=== PATIENT | male | born 1965 | race Caucasian/White ===

== ENCOUNTER 2024-09-24 15:09 | Emergency (ER) | payer BC ==
--- OUTSIDE RECORDS SUMMARY | 2024-09-24 15:13 | XMS REPORT | Clinical Summary ---
Author Name Unknown Organization [facility] [place] Address [address] [place] [address] Care Team Providers Care Tree Doctor Name Role Phone Angie Munoz MD Unavailable [phone] Finesse Andrade MD Unavailable [phone] Radha Xenia EULALIA Unavailable [phone] Grant Shah MD Primary Care Provider Larisa Chan RN Unavailable Allergies No known active allergies Medications traZODone (DESYREL) 100 mg tablet Take 1 tablet (100 mg) by mouth at bedtime. 5 Active ALPRAZolam (XANAX) 0.5 mg tablet Take 1 tablet (0.5 mg) by mouth daily as needed. 5 Active FLUoxetine (PROzac) 40 mg capsule Take 1 capsule (40 mg) by mouth daily. 5 Active peg 3350-electrolyt es (Golytely) 236-22.74-6.74 g solutionIndicat ions:Colonoscop y planned Mix as directed and drink as directed. 4000 mL 5 09/24/19 25 Discontinu ed(Stop Taking at Discharge) peg 3350-electrolyt es (Golytely) 236-22.74-6.74 g solutionIndicat ions:Colonoscop y planned Mix as directed and drink as directed. 4000 mL 09/24/19 Discontinu ed(Stop Taking at Discharge) Active Problems Problem Noted Date Diagnosed Date Thyroid nodule 09/11/2024 Carcinoma, NOS of descending colon 09/03/2024 Encounters Date Type Department Care Team Description 09/24/2024 Telephone Colorectal Center - Medical Oncology [address] [place] [address] Main [facility], 7th [place] [address] Larisa Chan, RN Nurse Navigation 09/24/2024 Telephone Gastrointestinal Center [address] [place] [address] Main [facility], 7th [place] [address] Jasmine Tillman RN 09/23/2024 12:24 PM CDT Anesthesia Event Endoscopy Center [address] [place] [address] Main [facility], 5th [place] [address] Kirill Ta MD 09/23/2024 12:00 PM CDT - 09/23/2024 1:00 PM CDT Surgery Endoscopy Center [address] [place] [address], 5th [place] [address] Mina Leigh MD DIAGNOSTIC FLEXIBLE COLONOSCOPY PROXIMAL TO SPLENIC FLEXURE 09/23/2024 10:46 AM CDT - 09/23/2024 2:45 PM CDT Hospital Encounter Endoscopy Center [address] [place] [address], 5th [place] [address] Mina Leigh MD Carcinoma, NOS of descending colon Discharge Disposition: Home 09/23/2024 Travel 09/22/2024 4:30 PM CDT POEM Appointments [facility] [address] [place] [address], 6th [place] [address] Grant Shah MD 09/19/2024 11:59 PM CDT Anesthesia Event [facility] [address] [place] [address] Main [facility], [facility] [place] [address] Nicolas Steen Jr., RN 09/18/2024 Orders Only Colorectal Center - Colon and Rectal Surgery [address] [place] [address], [facility] [place] [address] Grant Shah MD 09/18/2024 Telephone Colorectal Center - Medical Oncology [address] [place] [address], [address] [place] [address] [place] [address] Larisa Chan, RN Nurse Navigation 09/15/2024 Refill Endoscopy Center [address] [place] [address], 5th [place] [address] Heather Reno RN Colonoscopy planned (Primary Dx) 09/15/2024 Orders Only Gastrointestinal Center - Gastroenterology, Hepatology & Nutrition [address] [place] [address], [address] [place] [address] [place] [address] Roberto Mathur PA-C Colonoscopy planned (Primary Dx) 09/15/2024 Prep for Surgery Gastrointestinal [facility] - Gastroenterology, Hepatology & Nutrition [address] [place] [address], [address] [place] [address] Roberto Mathur PA-C Carcinoma, NOS of descending colon (Primary Dx) 09/13/2024 11:32 AM CDT - 09/13/2024 11:59 PM CDT Hospital Encounter Diagnostic [facility] [address] [place] [address] Virgie Little PA Carcinoma, NOS of descending colon Discharge Disposition: Home 09/11/2024 Orders Only Colorectal Center - Colon and Rectal Surgery [address] [place] [address], [address] [place] [address] Virgie Little PA Carcinoma, NOS of descending colon (Primary Dx); Thyroid nodule 09/05/2024 2:30 PM CDT Ancillary Procedure MD Vivas [place] [address] [address] Amber Horne PA-C Carcinoma, NOS of descending colon 09/04/2024 2:00 PM CDT Nutrition Clinical Nutrition For your Nutrition appointment location directions please call: Grant Shah MD Brown, Melanie P, VERONICA 09/04/2024 Telephone [facility] [place] - Medical Oncology [address] [place] [address], [facility] [place] [address] Larisa Chan, EULALIA New Patient ; Nurse Navigation 09/04/2024 Telephone [facility] [place] - Medical Oncology [address] [place] [address], [facility] [place] [address] Xenia Garcia, RN Nurse Navigation 09/03/2024 2:00 PM CDT Procedure visit [facility] - Colon and Rectal Surgery [address] [place] [address], [address] [place] [address] [place] [address] Grant Shah MD Carcinoma, NOS of descending colon 09/03/2024 1:00 PM CDT Office Visit [facility] - Colon and Rectal Surgery [address] [place] [address], [address] [place] [address] [place] [address] Grant Shah MD Carcinoma, NOS of descending colon (Primary Dx) 09/03/2024 10:15 AM CDT Ancillary Procedure Neuro-Interventiona l Ultrasound [address] [facility], 6th [place] [address] Kameron Hughes PA Carcinoma, NOS of descending colon 09/02/2024 7:55 AM CDT Ancillary Procedure [facility] [address] [facility], [place] [address] Kameron Hughes PA Carcinoma, NOS of descending colon 09/02/2024 Travel 09/01/2024 1:30 PM CDT NPR MDA PATIENT ACCESS Grant Shah MD 08/29/2024 Telephone Colorectal Center - Medical Oncology [address] [place] [address], [address] [place] [address] [place] [address] Xenia Garcia, RN Nurse Navigation 08/29/2024 Telephone [facility] [place] - Medical Oncology [address] [place] [address], [facility] [place] [address] Hurlbut, Xenia, RN Nurse Navigation 08/28/2024 Telephone [facility]orectal [place] - Medical Oncology [address] [facility] Main Bldg, 7th [place] [address] Xenia Garcia RN Nurse Murray 08/27/2024 Orders Only Colorectal Center - Colon and Rectal Surgery [address] [facility] Main Bldg, 7th [place] [address] Kameron Hughes PA Carcinoma, NOS of descending colon (Primary Dx) 08/25/2024 Lab Requisition [facility] George Collins MD Gilbert-Lewis, Sara Sanchez MD 08/21/2024 8:00 PM PATTERN MOLDER Ancillary Procedure [facility] [address] [place] [id number] Grant Shah MD Cancer 08/19/2024 Telephone [facility] - Medical Oncology [facility] [facility] Main dg, 7th [place] [address] Xenia Garcia RN 08/19/2024 Orders Only Radiation Treatment Center [address] [facility] Main dg, 1st [place] [address] Lilian Teixeira APRN 08/15/2024 Telephone [facility] - Medical Oncology [facility] 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 Malignant neoplasm of colon Disorder of thyroid gland Family History Medical History Relation Name Comments Lung cancer Father Nadiya father Breast cancer Mother Nadiya mother Relation Name Status Comments Father Nadiya father Mother Nadiya mother Social History Tobacco Use Types Packs/Day Years Used Date Smoking Tobacco: Former Cigarettes 1 5 Tobacco Cessation:Counseling Given: Not Answered Alcohol Use Standard Drinks/Week Comments Not Currently 0 (1 standard drink = 0.6 oz pur e alcohol) Sex and Gender Information Value Date Recorded Sex Assigned at Not on file Legal Sex Male 2:04 PM PATTERN MOLDER Gender Identity Not on file Sexual Orientation Not on file Obstetrics History Last Filed Vital Signs Vital Sign Reading Time Taken Comments Blood Pressure 110/79 09/23/2024 1:55 PM CDT Pulse 53 09/23/2024 1:55 PM CDT Temperature 36.4 C (97.5 F) 09/23/2024 1:45 PM CD T Respiratory Rate 17 09/23/2024 1:55 PM CDT Oxygen Saturation 98% 09/23/2024 1:55 PM CDT Inhaled Oxygen Concentration - - Weight 92.9 kg (204 lb 12.9 oz) 025 11:16 AM CDT Height 190.5 cm (6' 3") 09/23/2024 11:1 6 AM CDT Body Mass Index 25.6 09/23/2024 11:16 AM CDT Plan of Treatment Upcoming Encounters Date Type Department Care Team (Late st Contact Info) Description 10/17/2024 1:15 PM CDT Consult Endocrine Center [address] [place] [address], 6th [place] [address] Han Santiago MD [facility] [place], [place] [id number] [email or web address] Maintenance Due Date Last Done Comments Pneumococcal Vaccine: 50+ Years (1 of 1 - PCV) 016 COVID-19 Vaccine ( - season) 2024 Influenza Vaccine (#1) 2024 Medical Devices Implanted Type Area Film Examiner Device Identifier Shelf Expiration Date Model / Serial / Lot Screw Screw Right: Shoulder Procedures Procedure Name Priority Date/Time Associated Diagnosis Comments PATHOLOGY BIOPSY INTERPRETATION Routine 09/23/2024 12:51 PM CDT Carcinoma, NOS of descending colon HIV-1/-2 AG AND AB SCREEN, P Routine 09/13/2024 11:40 AM CDT Carcinoma, NOS of descending colon PETCT F18 FDG (FLUORODEOXYGLUCOSE) WITH CONTRAST Routine 09/05/2024 4:29 PM CDT Carcinoma, NOS of descending colon US FINE NEEDLE ASPIRATION Routine 09/03/2024 12:44 PM CDT Carcinoma, NOS of descending colon US HEAD NECK SOFT TISSUE Routine 025 12:44 PM CDT Carcinoma, NOS of descending colon CYTOLOGY IMAGE-GUIDED FNA INTERPRETATION Routine 09/03/2024 10:57 AM CDT Carcinoma, NOS of descending colon AR SIGMOIDOSCOPY FLX DX W/COLLJ SPEC BR/WA IF PFRMD Routine 09/03/2024 Carcinoma, NOS of descending colon CT CHEST ABDOMEN PELVIS W CONTRAST Routine 09/02/2024 9:16 AM CDT Carcinoma, NOS of descending colon CARBOHYDRATE ANTIGEN 19-9 Add-On 09/02/2024 7:19 AM CDT Carcinoma, NOS of descending colon MDA CP HEMOGRAM Routine 09/02/2024 7:19 AM CDT Carcinoma, NOS of descending colon PROTHROMBIN TIME Routine 09/02/2024 7:19 AM CDT Carcinoma, NOS of descending colon HEMOGLOBIN A1C Routine 09/02/2024 7:19 AM CDT Carcinoma, NOS of descending colon COMPREHENSIVE METABOLIC PANEL Routine 09/02/2024 7:19 AM CDT Carcinoma, NOS of descending colon CARCINOEMBRYONIC ANTIGEN Routine 025 7:19 AM CDT Carcinoma, NOS of descending colon COMPLETE BLOOD COUNT W/ INDICES Routine 09/02/2024 7:19 AM CDT Carcinoma, NOS of descending colon APTT Routine 09/02/2024 7:19 AM CDT Carcinoma, NOS of descending colon OSI CT CHEST Routine 07/29/2024 12:07 PM PATTERN MOLDER Cancer PATHOLOGY OUTSIDE INTERPRETATION Routine 07/25/2024 after 09/25/2023 Results * Pathology Biopsy Interpretation (09/23/2024 12:51 PM CDT) Submitted Clinical History Carcinoma, NOS of descending colon [C18.6] 09/24/2024 11:28 AM CDT [facility] Diagnosis A: Colon, splenic flexure colon polyps x 2, biopsy: Tubular adenomas. B: Colon, descending colon polyp, biopsy: Tubular adenoma. 09/24/2024 11:28 AM CDT [facility] Gross Description A: Colon, splenic flexure colon polyps x 2: 2 polypoid bush pieces of tissue, 0.7 cm and 0.8 cm. Each piece is sectioned, entirely submitted in A1-A2. ET B: Colon, descending colon polyp: 1 polypoid bush piece of tissue, 1.5 cm, serially sectioned, entirely submitted in B1. ET 09/24/2024 11:28 AM CDT [facility] [employer] [facility] Biomarker Block(s) NA 09/24/2024 11:28 AM CDT [facility] Disclaimer "Some tests reported here may have been developed and performance characteristics determined by [facility]. These tests have not been specifically cleared or approved by the U.S. Food and Drug Administration. If applicable, controls were reviewed and showed appropriate reactivity." 09/24/2024 11:28 AM CDT [facility] Tissue (Colon) 09/23/2024 12 :51 PM CDT 09/23/2024 3:25 PM CDT Tissue specimen (specimen) (Colon) 09/23/2024 12:58 PM CDT 09/23/2024 3:25 PM CDT us Mina Leigh MD LAB PATHOLOGY ORDERABLES Final R esult [facility] [place] [address], [place] * HIV-1/-2 Ag and Ab Screen, P (09/13/2024 11:40 AM CDT) HIV-1/-2 Ag and Ab Screen, P Negative Negative 09/15/2024 10:15 AM CDT [facility] Comment: Negative result does not rule out HIV infection. If exposure to HIV infection occurred <14 days ago, contact the laboratory to request addition of HIV-1/HIV-2 RNA detection, Plasma (HIP12). Test Performed by: [facility] [address] [place] [address] Poultry Dresser: Justino Barrera Ph.D.; CLIA# [id number] Blood Peripheral blood specimen / Unknown Venipuncture / Unknown 09/13/2024 11:40 AM CDT 09/13/2024 12:05 PM CDT us Virgie BOWMAN LAB BLOOD ORDERABLES Final Resul t [facility] * PETCT F18 FDG (Fluorodeoxyglucose) with contrast (09/05/2024 4:29 PM CDT) Anatomical Region Laterality Modality Whole Body Positron Emissio n Tomography (PET) 09/08/2024 3:21 PM CDT Impressions 09/08/2024 5:10 PM CDT Thin-walled cavities noted in the right lower lobe with low-grade metabolic activity. This may be postinflammatory nature and should be closely monitored in subsequent studies. Multiple calcified and metabolically avid mediastinal nodes are noted. This is associated with numerous calcified granulomas. These may be related to chronic granulomatous process. Metastases is thought to be unlikely. No definite evidence of metastases in the abdomen and pelvis. ACTIONABLE ITEMS/RECOMMENDATIONS*: None. *An Actionable Finding is a finding that may be unrelated to the original reason for imaging but potentially actionable, meaning further investigation may be necessary. The Actionable Findings Vigilance Unit (AFVU) assists medical providers with responding to additional radiologic findings that are unexpected and potentially actionable. Narrative 09/08/2024 5:10 PM CDT FULL RESULT: Examination: 18F-FDG-PET/CT with contrast, 09/05/2024 4:29 PM Clinical History: Carcinoma of the colon. Indication: Initial treatment strategy. Comparison: CT scan from 09/02/2024 Technique: F-18 fluorodeoxyglucose 11.1 mCi was administered intravenously via left antecubital vein. To allow for distribution and uptake of radiotracer, the patient was asked to rest quietly for approximately 60-90 minutes. PET/CT imaging was performed from the vertex to thighs. CT scanning was done for attenuation correction, image registration, and diagnosis with scan parameters optimized to minimize radiation exposure to the patient. The CT portion of the examination was performed with intravenous contrast. SUV measurements are reported as maximum SUV based on body weight unless otherwise specified. Findings: Head and Neck: Symmetrical intracranial radiotracer activity is noted. No evidence of intracranial mass lesions are seen. Physiological distribution of tracer is noted in the lymphoid tissue surrounding the oropharynx. There is no evidence of FDG avid cervical adenopathy. The neck Chest: There are multiple enlarged, partially calcified mediastinal and hilar nodes which are not metabolically avid, for example, 3.2 x 2.4 cm right hilar node has a maximum SUV of 11.8, 1.6 x 2 cm subcarinal node on image 124 has a maximum SUV of 4.9, 1.5 x 2.2 cm superior mediastinal node on image 141 has a maximum SUV of 5.8. There are numerous scattered calcified granulomas. A thin-walled cavitary lesion measuring 1.3 x 1.1 cm in the right lower lobe is associated with low-grade metabolic activity, maximum SUV of 2.9. Abdomen and Pelvis: Long segment increased metabolic activity is noted in the sigmoid colon. No bowel mass lesions are seen. No obstruction. There is diffuse hepatic steatosis and mild hepatic enlargement. No evidence of hepatic metastases. Physiologic radiotracer activity in the liver, spleen. The spleen is mildly enlarged The adrenal glands, the kidneys, the pancreas are within normal limits. No evidence of mesenteric, retroperitoneal or pelvic adenopathy. Musculoskeletal: There are no FDG avid bony lesions seen. No FDG avid intramuscular or subcutaneous lesions are identified. Procedure Note Rohan Dias MD - 09/08/2024 FULL RESULT: Examination: 18F-FDG-PET/CT with contrast, 09/05/2024 4:29 PM Clinical History: Carcinoma of the colon. Indication: Initial treatment strategy. Comparison: CT scan from 09/02/2024 Technique: F-18 fluorodeoxyglucose 11.1 mCi was administered intravenously via leftantecubital vein. To allow for distribution and uptake of radiotracer, thepatient was asked to rest quietly for approximately 60-90 minutes. PET/CTimaging was performed from the vertex to thighs. CT scanning was done forattenuation correction, image registration, and diagnosis with scanparameters optimized to minimize radiation exposure to the patient. The CTportion of the examination was performed with intravenous contrast. SUVmeasurements are reported as maximum SUV based on body weight unlessotherwise specified. Findings: Head and Neck: Symmetrical intracranial radiotracer activity is noted. No evidence ofintracranial mass lesions are seen. Physiological distribution of traceris noted in the lymphoid tissue surrounding the oropharynx. There is noevidence of FDG avid cervical adenopathy. The neck Chest: There are multiple enlarged, partially calcified mediastinal and hilarnodes which are not metabolically avid, for example, 3.2 x 2.4 cm righthilar node has a maximum SUV of 11.8, 1.6 x 2 cm subcarinal node on [id number] has a maximum SUV of 4.9, 1.5 x 2.2 cm superior mediastinal node onimage 141 has a maximum SUV of 5.8. There are numerous scattered calcified granulomas. A thin-walled cavitarylesion measuring 1.3 x 1.1 cm in the right lower lobe is associated withlow-grade metabolic activity, maximum SUV of 2.9. Abdomen and Pelvis: Long segment increased metabolic activity is noted in the sigmoid colon.No bowel mass lesions are seen. No obstruction. There is diffuse hepaticsteatosis and mild hepatic enlargement. No evidence of hepatic metastases.Physiologic radiotracer activity in the liver, spleen. The spleen ismildly enlarged The adrenal glands, the kidneys, the pancreas are within normal limits. No evidence of mesenteric, retroperitoneal or pelvic adenopathy. Musculoskeletal: There are no FDG avid bony lesions seen. No FDG avid intramuscular orsubcutaneous lesions are identified. IMPRESSION: Thin-walled cavities noted in the right lower lobe with low-grademetabolic activity. This may be postinflammatory nature and should beclosely monitored in subsequent studies. Multiple calcified and metabolically avid mediastinal nodes are noted.This is associated with numerous calcified granulomas. These may berelated to chronic granulomatous process. Metastases is thought to beunlikely. No definite evidence of metastases in the abdomen and pelvis. ACTIONABLE ITEMS/RECOMMENDATIONS*: None. *An Actionable Finding is a finding that may be unrelated to the originalreason for imaging but potentially actionable, meaning furtherinvestigation may be necessary. The Actionable Findings Vigilance Unit(AFVU) assists medical providers with responding to additional radiologicfindings that are unexpected and potentially actionable. us Abmer Horne PA-C [facility] PETCT ORDERABLES Final Result * US Fine Needle Aspiration (09/03/2024 12:44 PM CDT) Anatomical Region Laterality Modality Ultrasound 09/03/2024 12:5 0 PM CDT Impressions 09/03/2024 12:52 PM CDT Status post FNA of the 3.5 cm left mid thyroid nodule with preliminary cytology interpreted as cellular atypica, full result to follow. ACTIONABLE ITEMS/RECOMMENDATIONS*: None. *An Actionable Finding is a finding that may be unrelated to the original reason for imaging but potentially actionable, meaning further investigation may be necessary. The Actionable Findings Vigilance Unit (AFVU) assists medical providers with responding to additional radiologic findings that are unexpected and potentially actionable. Narrative 09/03/2024 12:52 PM CDT FULL RESULT: Examination: US FINE NEEDLE ASPIRATION on 09/03/2024 12:44 PM. CLINICAL HISTORY: Carcinoma, NOS of descending colon INDICATION: Mass from other Imaging (CT, MRI, PET, etc.) COMPARISON: Ultrasound soft tissue neck 09/03/2024. TECHNIQUE: Grayscale and color Doppler ultrasound of the neck was performed. An ultrasound-guided FNA of 3.5 cm left thyroid nodule was performed. PROCEDURE: Site: Left thyroid nodule Provider performing procedure: Yann Lu Procedure investment sales assistant: None Procedure details: The procedure and associated risks, benefits, and alternatives were discussed with the patient, who agreed to proceed and signed an informed consent form. A safety timeout was done to verify the patient's identity, review any allergies, and confirm the side and site of the procedure. The skin site was prepped aseptically. Medication: local anesthesia with Lidocaine 1% FNA of the thyroid was performed using a 25-gauge needle Number passes made: 4 Estimated blood loss: Minimal Specimens removed: Yes Immediate Complications: None Post-procedure Diagnosis: Unchanged Disposition: The post-biopsy instructions were reviewed with the patient. The patient was discharged from Neurointerventional Ultrasound in good condition. Procedure Note Aaron Lu MD - 09/03/2024 FULL RESULT: Examination: US FINE NEEDLE ASPIRATION on 09/03/2024 12:44 PM. CLINICAL HISTORY: Carcinoma, NOS of descending colon INDICATION: Mass from other Imaging (CT, MRI, PET, etc.) COMPARISON: Ultrasound soft tissue neck 09/03/2024. TECHNIQUE: Grayscale and color Doppler ultrasound of the neck wasperformed. An ultrasound-guided FNA of 3.5 cm left thyroid nodule wasperformed. PROCEDURE: Site: Left thyroid nodule Provider performing procedure: Yann Lu Procedure investment sales assistant: None Procedure details: The procedure and associated risks, benefits, and alternatives werediscussed with the patient, who agreed to proceed and signed an informedconsent form. A safety timeout was done to verify the patient's identity, review anyallergies, and confirm the side and site of the procedure. The skin site was prepped aseptically. Medication: local anesthesia with Lidocaine 1% FNA of the thyroid was performed using a 25-gauge needle Number passes made: 4 Estimated blood loss: Minimal Specimens removed: Yes Immediate Complications: None Post-procedure Diagnosis: Unchanged Disposition: The post-biopsy instructions were reviewed with the patient.The patient was discharged from Neurointerventional Ultrasound in goodcondition. IMPRESSION: Status post FNA of the 3.5 cm left mid thyroid nodule with preliminarycytology interpreted as cellular atypica, full result to follow. ACTIONABLE ITEMS/RECOMMENDATIONS*: None. *An Actionable Finding is a finding that may be unrelated to the originalreason for imaging but potentially actionable, meaning furtherinvestigation may be necessary. The Actionable Findings Vigilance Unit(AFVU) assists medical providers with responding to additional radiologicfindings that are unexpected and potentially actionable. Kameron BOWMAN IMG US ORDERABLES Final Re sult * US HEAD NECK SOFT TISSUE (09/03/2024 12:44 PM CDT) Anatomical Region Laterality Modality Head, Neck Ultrasound 09/03/2024 10:5 0 AM CDT Impressions 09/03/2024 12:51 PM CDT Status post FNA of the 3.5 cm left mid thyroid nodule with preliminary cytology interpreted as cellular atypica, full result to follow. No suspicious right thyroid nodules. No adenopathy. ACTIONABLE ITEMS/RECOMMENDATIONS: None Narrative 09/03/2024 12:51 PM CDT FULL RESULT: Examination: US HEAD NECK SOFT TISSUE on 09/03/2024 10:19 AM. CLINICAL HISTORY: Thyroid nodule INDICATION: Other: Lt Thyroid nodule observed on OSI CT scan, h/o Colon cancer - SCC COMPARISON: None. TECHNIQUE: Ultrasound examination of the neck soft tissues was performed. FINDINGS: Right thyroid gland: The right thyroid measures approximately 4.5 x 1.5 x 1.5 cm in diameter. No suspicious nodules or calcifications are present. Left thyroid gland: The left thyroid gland measures approximately 5.3 x 2.9 x 2.4 cm in diameter. An isoechoic nodule in the midpole measures approximately 3.5 x 2.8 x 2.4 cm and demonstrates minimal vascularity without calcification (TR 3). Suprasternal and superior mediastinal: No adenopathy. Submental to cricoid: No adenopathy. Right lateral neck: No adenopathy. Left lateral neck: No adenopathy. Procedure Note Aaron Lu MD - 09/03/2024 FULL RESULT: Examination: US HEAD NECK SOFT TISSUE on 09/03/2024 10:19 AM. CLINICAL HISTORY: Thyroid nodule INDICATION: Other: Lt Thyroid nodule observed on OSI CT scan, h/o Colon cancer - SCC COMPARISON: None. TECHNIQUE: Ultrasound examination of the neck soft tissues wasperformed. FINDINGS: Right thyroid gland: The right thyroid measures approximately 4.5 x 1.5 x 1.5 cm in diameter. No suspicious nodules or calcifications are present. Left thyroid gland: The left thyroid gland measures approximately 5.3 x 2.9 x 2.4 cm indiameter. An isoechoic nodule in the midpole measures approximately 3.5 x 2.8 x 2.4cm and demonstrates minimal vascularity without calcification (TR 3). Suprasternal and superior mediastinal: No adenopathy. Submental to cricoid: No adenopathy. Right lateral neck: No adenopathy. Left lateral neck: No adenopathy. IMPRESSION: Status post FNA of the 3.5 cm left mid thyroid nodule with preliminarycytology interpreted as cellular atypica, full result to follow. No suspicious right thyroid nodules. No adenopathy. ACTIONABLE ITEMS/RECOMMENDATIONS: None us Kameron BOWMAN IMG US ORDERABLES Final Re sult * (ABNORMAL) Cytology Image-Guided FNA Interpretation (09/03/2024 10:57 AM CDT) Gross Description Specimens procured: 6 Diff Quik; 6 Pap Stain Slides 10 ml, slightly cloudy bloody fluid in RPMI 1 Cell Block Date/Time Placed in Formalin: 09/03/24 2:52 PM Size: 2.8 x 2.4 x 3.5 cm Immediate assessment for specimen adequacy was made x2 by Dr. Will 09/05/2024 12:04 PM CDT [facility] Immediate Assessment Adequate cellularity, further review needed 09/05/2024 12:04 PM CDT [facility] Major Classification Cellular atypia(A) 09/05/2024 12:04 PM CDT [facility] Diagnosis Thyroid, left lobe, fine needle aspiration: Atypia of undetermined significance (AUS-nuclear) [place] category III 09/05/2024 12:04 PM CDT [facility] Comment The aspirate demonstrates rare follicular cell groups with significant nuclear atypia including nuclear enlargement and irregularity, frequent nuclear grooves and suggestion of rare intranuclear inclusions. There is thick colloid in the background. The atypia seen raises some concern for papillary thyroid carcinoma, but the paucity of atypical cells precludes a definitive diagnosis. An attempt was made to perform immunoperoxidase staining for BRAF V600E on rare cells within the cell block but is non-contributory due to the paucity of diagnostic cells. The cell block preparation was contributory toward making the above diagnosis. 09/05/2024 12:04 PM CDT [facility] Retained/Biomark er Testing SR: 12 S, 1 CB. 1 IP 09/05/2024 12:04 PM CDT [facility] Informational Points Some tests reported here may have been developed and performance characteristics determined by [facility]. These tests have not been specifically cleared or approved by the U.S. Food and Drug Administration. 09/05/2024 12:04 PM CDT [facility] Fine Needle Asp (Thyroid, Left Lobe) 09/03/2024 10:57 AM CDT 09/03/2024 11:36 AM CDT us Kameron BOWMAN LAB CYTOLOGY ORDERABLES Fi nal Result [facility] [address] [address], * AR SIGMOIDOSCOPY FLX DX W/COLLJ SPEC BR/WA IF PFRMD (09/03/2024) Narrative [facility] - 09/03/2024 Grant Shah MD 09/03/2024 2:28 PM Flexible sigmoidoscopy - In Clinic Date/Time: 09/03/2024 2:25 PM Provider Information: Performed by: Grant Shah MD Authorized by: Kameron Hughes PA Corn Husk Baler present?: yes Corn Husk Baler: Amber Horne PA-C Patient Diagnosis: 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 Summary: Digital rectal exam - unremarkable, no evidence of perianal lesion Flexible sigmoidoscopy - incomplete due to poor prep. No abnormalities in sigmoid colon and rectum. Retroflexed in rectum, no evidence of perianal disease. 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 Summary: Digital rectal exam - unremarkable, no evidence of perianal lesion Flexible sigmoidoscopy - incomplete due to poor prep. No abnormalities insigmoid colon and rectum. Retroflexed in rectum, no evidence of perianaldisease. Kameron BOWMAN GI PROCEDURE ORDERABLES Ed ited Result - Final [facility] * CT Chest Abdomen Pelvis with Contrast (09/02/2024 9:16 AM CDT) Anatomical Region Laterality Modality Abdomen, Pelvis, Chest Computed Tomography 09/02/2024 9:18 AM CDT Impressions 09/02/2024 9:49 AM CDT No visualized tumor in the descending colon. No definite evidence of metastatic disease in the chest, abdomen, and pelvis. Nonspecific stable right anterior pericardiac borderline node. Stable cavitary right lower lobe 1.4 cm partially calcified lung nodule, which might be related to infection, inflammation, or less likely tumor. Sequela of extensive old granulomatous disease in the thorax. ACTIONABLE ITEMS/RECOMMENDATIONS*: None. *An Actionable Finding is a finding that may be unrelated to the original reason for imaging but potentially actionable, meaning further investigation may be necessary. The Actionable Findings Vigilance Unit (AFVU) assists medical providers with responding to additional radiologic findings that are unexpected and potentially actionable. Narrative 09/02/2024 9:49 AM CDT FULL RESULT: Examination: CT CHEST ABDOMEN PELVIS W CONTRAST on 09/02/2024 9:16 AM. Clinical History: Carcinoma, NOS of descending colon. Indication: Cancer surveillance. Comparison: 07/29/[address] chest. Technique: CT CHEST ABDOMEN PELVIS W CONTRAST. Findings: CHEST: Thyroid gland: Bilateral thyroid nodules. Lungs and Pleura: Right lower lobe posterior medial cavitary 1.4 cm nodule (series 4 image 110) is unchanged. Multiple bilateral calcified lung nodules. No pleural effusion. Cardiomediastinum: The heart is normal in size. No pericardial effusion. Mild coronary artery calcifications. Lymph nodes: Multiple calcified prominent mediastinal and perihilar nodes, consistent with sequela of granulomatous disease. ABDOMEN AND PELVIS: Hepatobiliary: No suspicious hepatic lesion. No biliary dilatation. No cholecystitis. Spleen: Moderately enlarged at 15.2 cm. Scattered calcified Pancreas: No mass or ductal dilatation. Adrenal Glands: No mass. Kidneys, Ureters, Bladder: No hydronephrosis. No suspicious renal lesion. No bladder mass. Gastrointestinal Tract: No bowel obstruction or wall thickening. Pelvic Organs: No pelvic mass. Peritoneum/Retroperitoneum: No ascites. Lymph Nodes: Stable right anterior pericardiac 0.9 cm node (series 3 image 170). MUSCULOSKELETAL: No suspicious skeletal lesion. Mild degenerative changes. Vasculature: Moderate degree of atheromatous vascular calcifications. Procedure Note Teri Talamantes MD - 09/02/2024 FULL RESULT: Examination: CT CHEST ABDOMEN PELVIS W CONTRAST on 09/02/2024 9:16 AM. Clinical History: Carcinoma, NOS of descending colon. Indication: Cancer surveillance. Comparison: 07/29/[address] chest. Technique: CT CHEST ABDOMEN PELVIS W CONTRAST. Findings: CHEST: Thyroid gland: Bilateral thyroid nodules. Lungs and Pleura: Right lower lobe posterior medial cavitary 1.4 cm nodule(series 4 image 110) is unchanged. Multiple bilateral calcified lungnodules. No pleural effusion. Cardiomediastinum: The heart is normal in size. No pericardial effusion.Mild coronary artery calcifications. Lymph nodes: Multiple calcified prominent mediastinal and perihilar nodes,consistent with sequela of granulomatous disease. ABDOMEN AND PELVIS: Hepatobiliary: No suspicious hepatic lesion. No biliary dilatation. Nocholecystitis. Spleen: Moderately enlarged at 15.2 cm. Scattered calcified Pancreas: No mass or ductal dilatation. Adrenal Glands: No mass. Kidneys, Ureters, Bladder: No hydronephrosis. No suspicious renal lesion. No bladder mass. Gastrointestinal Tract: No bowel obstruction or wall thickening. Pelvic Organs: No pelvic mass. Peritoneum/Retroperitoneum: No ascites. Lymph Nodes: Stable right anterior pericardiac 0.9 cm node (series 3 [id number]). MUSCULOSKELETAL: No suspicious skeletal lesion. Mild degenerative changes. Vasculature: Moderate degree of atheromatous vascular calcifications. IMPRESSION: No visualized tumor in the descending colon. No definite evidence of metastatic disease in the chest, abdomen, andpelvis. Nonspecific stable right anterior pericardiac borderline node. Stable cavitary right lower lobe 1.4 cm partially calcified lung nodule,which might be related to infection, inflammation, or less likely tumor.Sequela of extensive old granulomatous disease in the thorax. ACTIONABLE ITEMS/RECOMMENDATIONS*: None. *An Actionable Finding is a finding that may be unrelated to the originalreason for imaging but potentially actionable, meaning furtherinvestigation may be necessary. The Actionable Findings Vigilance Unit(AFVU) assists medical providers with responding to additional radiologicfindings that are unexpected and potentially actionable. Kameron BOWMAN IMG CT ORDERABLES Final Re sult * Hemogram (09/02/2024 7:19 AM CDT) White Blood Cell 6.6 4.1 - 10.5 K/uL 09/02/2024 7:27 AM [facility] Red Blood Cell 4.64 4.30 - 6.04 M/uL 09/02/2024 7:27 AM [facility] Hemoglobin 14.2 13.3 - 17.4 g/dL 09/02/2024 7:27 AM [facility] Hematocrit 43.6 39.5 - 51.8 % 09/02/2024 7:27 AM [facility] Mean Cell Volume 94 82 - 99 fL 09/03/19 25 7:27 AM [facility] Mean Cell Hemoglobin 30.6 26.6 - 33.2 pg 09/02/2024 7:27 AM [facility] Mean Cell Hemoglobin Concentration 32.6 31.1 - 35.2 g/dL 09/02/2024 7:27 AM CDT [facility] RDW-SD 43.7 37.5 - 49.7 fL 09/02/2024 7:27 AM CDT [facility] Red Cell Diameter Width 12.5 11.6 - 15.5 % 09/02/2024 7:27 AM CDT [facility] Platelet 179 160 - 397 K/uL 09/02/2024 7:27 AM CDT [facility] Mean Platelet Volume 10.0 9.1 - 12.6 fL 09/02/2024 7:27 AM CDT [facility] Blood Peripheral blood specimen / Unknown Venipuncture / Unknown 09/02/2024 7:19 AM CDT 09/02/2024 7:19 AM CDT us Kameron BOWMAN LAB BLOOD ORDERABLES Final Result [facility] [address] [address] [facility], Room #[id number] [place] [address] * (ABNORMAL) Comprehensive Metabolic Panel (09/02/2024 7:19 AM CDT) Bilirubin Total 0.4 0.0 - 1.2 mg/dL 09/02/2024 7:47 AM [facility] Comment:Indocyanine Green (I CG) may cause falsely elevated bilirubin results. Total and direct bilirubin must not be measured from samples containing indocyanine green. False elevation of total bilirubin can be seen in patients with IgG concentrations above 28 g/L. eGFR 86 >=60 mL/min/1.7 3 sq. m 09/02/2024 7:47 AM T [facility] Comment: The eGFRcr is calculated with the 2020 CKD-EPI creatinine equation using creatinine, patient's age, and sex for adults 18 years of age and older. Other factors, especially muscle mass, may affect accuracy and need to be considered. According to the Kidney Disease: Improving Global Outcomes (KDIGO) CKD Work Group 2012 Clinical Practice Guideline, chronic kidney disease (CKD) is defined as the abnormalities of kidney structure or function, present for more than 3 months, with implications for health. CKD should be classified by cause, GFR category, and albuminuria category. KDIGO guidelines provide the following GFR categories. Stage / Description / GFR mL/min/1.73 m2: G1* / Normal or high / >= 90 G2* / Mildly decreased / 60-89 G3a / Mildly to moderately decreased / 45-59 G3b / Moderately to severely decreased / 30-44 G4 / Severely decreased / 15-29 G5 / Kidney failure / <15 *In the absence of evidence of kidney damage, neither G1 nor G2 fulfill criteria for CKD. Tot Protein 7.3 6.4 - 8.3 gm/dL 09/02/2024 7:47 AM [facility] Calcium Level Total 9.6 8.2 - 10.2 mg/dL 09/02/2024 7:47 AM [facility] Alkaline Phosphatase 112 40 - 129 U/L 09/02/2024 7:47 AM [facility] Albumin Level 4.3 3.5 - 5.2 gm/dL 09/02/2024 7:47 AM [facility] AST 48(H) <=40 U/L 09/02/2024 7:47 AM [facility] ALT 45(H) <=41 U/L 09/02/2024 7:47 AM [facility] Sodium Level 137 136 - 145 mmol/L 09/02/2024 7:47 AM [facility] Potassium Level 4.2 3.4 - 4.5 mmol/L 09/02/2024 7:47 AM [facility] Chloride 102 98 - 107 mmol/L 09/02/2024 7:47 AM [facility] CO2 25 22 - 29 mmol/L 09/02/2024 7:47 AM [facility] Anion Gap 10 4 - 14 mmol/L 09/02/2024 7:47 AM [facility] Creatinine 1.01 0.67 - 1.17 mg/dL 09/02/2024 7:47 AM [facility] BUN 22 6 - 23 mg/dL 09/02/2024 7:47 AM [facility] Glucose Level 93 70 - 99 mg/dL 09/02/2024 7:47 AM [facility] Comment: Effective 01/19/16, the glucose reference intervals have been updated based on [place] Diabetes [employer] guidelines (Standards of Medical Care in Diabetes 2016. Diabetes Care 2016; 39: S13-S22). Fasting blood glucose: Normal: 70-99 mg/dL Impaired fasting glucose (increased risk for diabetes or pre-diabetes): 100-125 mg/dL Diabetes mellitus: >/=126 mg/dL Random blood glucose: Normal: 70-199 mg/dL Note: Random glucose >100 mg/dL is associated with increased risk for diabetes. Blood Peripheral blood specimen / Unknown Venipuncture / Unknown 09/02/2024 7:19 AM CDT 09/02/2024 7:19 AM CDT Kameron BOWMAN LAB BLOOD ORDERABLES Final Result [facility] [id number], Room #[id number] [place] [address] * aPTT (09/02/2024 7:19 AM CDT) Activated PTT 31.4 24.8 - 35.6 second(s) 09/02/2024 7:46 AM CDT [facility] Blood Peripheral blood specimen / Unknown Venipuncture / Unknown 09/02/2024 7:19 AM CDT 09/02/2024 7:19 AM CDT Kameron BOWMAN LAB BLOOD ORDERABLES Final Result [facility] [address], Room #[id number] [place] [address] * CA 19-9 (09/02/2024 7:19 AM CDT) CA 19-9 20.8 <=35.0 U/mL 09/03/2024 2:47 PM CDT [facility] Blood Peripheral blood specimen / Unknown Venipuncture / Unknown 09/02/2024 7:19 AM CDT 09/02/2024 7:19 AM CDT Narrative [facility] - 09/03/2024 2:47 PM CDT Results greater than 9500 U/mL may not be reliable due to matrix effect with extended dilution as it exceeds the peanut butter maker's recommended limit. Caution should be exercised when interpreting such values and done in conjunction with clinical context. This test is measured by electrochemiluminescence immunoassay on [employer] immunoassay analyzers. Results obtained in different methods are not interchangeable. Amber Horne PA-C LAB BLOOD ORDERABLES Final Result Performing Organization Address City/[facility]/ZIP Co de Phone Number [facility] [id number] [facility], Room #[id number] [place] [address] * Prothrombin Time with INR (09/02/2024 7:19 AM CDT) Prothrombin Time 13.5 12.2 - 14.4 second(s) 09/02/2024 7:46 AM CDT [facility] International Normalization Ratio 1.01 0.91 - 1.10 09/02/2024 7:46 AM CDT [facility] Blood Peripheral blood specimen / Unknown Venipuncture / Unknown 09/02/2024 7:19 AM CDT 09/02/2024 7:19 AM CDT Kameron BOWMAN LAB BLOOD ORDERABLES Final Result Performing Organization Address City/[facility]/ZIP Co de Phone Number [facility] [id number] [facility], Room #[id number] [place] [address] * Hemoglobin A1c (09/02/2024 7:19 AM CDT) Hemoglobin A1c 5.5 4.3 - 5.6 % 09/02/2024 7:49 AM CDT [facility] Blood Peripheral blood specimen / Unknown Venipuncture / Unknown 09/02/2024 7:19 AM CDT 09/02/2024 7:19 AM CDT Narrative [facility] - 09/02/2024 7:49 AM CDT HbA1c values >=6.5% are diagnostic of diabetes mellitus. Diagnosis should be confirmed by repeat testing. Therapeutic Action suggested: >8.0% HbA1c; Goal of therapy: <7.0% HbA1c [facility] LAB BLOOD ORDERABLES Final Result [facility] [address], Room #[id number] [place] [address] * CEA (09/02/2024 7:19 AM CDT) Carcinoembryonic Antigen 1.0 <=3.8 ng/mL 09/02/2024 8:09 AM CDT [facility] Blood Peripheral blood specimen / Unknown Venipuncture / Unknown 09/02/2024 7:19 AM CDT 09/02/2024 7:19 AM CDT Narrative [facility] - 09/02/2024 8:09 AM CDT Reference Ranges (age 20-69 years): Non-smoker: <= 3.8 ng/mL Smoker: <= 5.5 ng/mL This test is measured by electrochemiluminescence immunoassay on [employer] immunoassay analyzers. Results obtained in different methods are not interchangeable. [facility] LAB BLOOD ORDERABLES Final Result [facility] [address], Room #[id number] [place] [address] * OSI CT Chest (07/29/2024 12:07 PM PATTERN MOLDER) Narrative Systemgenerated, Documentation - 08/21/2024 12:07 PM PATTERN MOLDER Study acquired at another institution. For comparison only. No [facility] originated interpretation requested or available. Grant Shah MD IMG OUTSIDE IMAGE ORDERABLES Fin al Result * Pathology Outside Interpretation (07/25/2024) Materials Received Accession#, Stained, Block, Unstained Collected Received A. [id number], 11 SS, 0 BLOCKS, 0 USS 07/25/2024 08/25/2024 09/03/2024 5:22 PM CDT [facility] Addendum 1 Additional material received on 08/29/2024, Outside 0 SS, 0 BLOCK, 10 USS, collected on 07/25/2024. Immunohistochemical studies performed at [facility] show the neoplastic cells are positive for CK5/6 and are negative for uroplakin-2. The immunohistochemical findings support SQUAMOUS CELL CARCINOMA. In addition, some neoplastic cells show weak to moderate dot-like staining for high risk HPV subtypes. The finding is suggestive of an HPV-driven process. Clinical correlation is recommended. 09/03/2024 5:22 PM CDT [facility] Addendum electronically signed by Petar Bustamante MD on 09/03/2024 at 5:22 PM Diagnosis Outside ([id number], 11 SS, 0 BLOCKS, 0 USS, collected on 07/25/2024): A. Stomach, biopsy (A1 LEV1-2, special stain x2): Oxyntic/fundic and antral mucosa with mild chronic inactive H. pylori gastritis. No intestinal metaplasia identified. Helicobacter organisms present. B. Colon, ascending, polyp x2, biopsy (B1 LEV1-2): Fragments of tubular adenoma(s). C. Colon, descending, polyp x5, biopsy (C1 LEV1, C1 LEV2, IHC/control x4): ULCERATED CARCINOMA INVOLVING COLONIC MUCOSA. (SEE COMMENT) Fragments of tubular adenoma(s). D. Colon/rectum, polyp, biopsy (D1 LEV1-2): Hyperplastic polyp. 09/03/2024 5:22 PM CDT [facility] Comment Immunohistochemical studies performed at the outside institution and reviewed at [facility] show the neoplastic cells are positive for p63 (diffuse) and GATA3 (weak to moderate, multifocal); and are negative for CK7 and CK20. The histologic and immunohistochemical findings are non-specific but suggestive of squamous cell carcinoma. Additional material for further evaluation will be requested; if the material is available, the results will be reported in an addendum. 09/03/2024 5:22 PM CDT [facility] Biomarker Block(s) Block for biomarker testing: C1 Normal block: A1 09/03/2024 5:22 PM CDT [facility] Disclaimer "Some tests reported here may have been developed and performance characteristics determined by [facility]. These tests have not been specifically cleared or approved by the U.S. Food and Drug Administration. If applicable, controls were reviewed and showed appropriate reactivity." 09/03/2024 5:22 PM CDT [facility] Tissue 07/25/2024 08/25/2024 7:5 0 AM PATTERN MOLDER us Sara Cade MD LAB PATHOLOGY ORD ERABLES Edited Result - Final [facility] [address] [place] [address], [place] after 09/25/2023 Insurance Care Teams Tree Doctor Relationship Specialty Start Date End Date Angie Munoz MD [address] [place] [address] PCP - External Primary Care Provider Family Practice 08/13/24 Finesse Andrade MD [address] [place] [address] [place] [address] PCP - External Follow Up A Gastroenterology 08/13/24 Grant Shah MD [address] [place] [id number] [email or web address] PCP - General Colorectal Surgery 08/15/24 Xenia Garcia, RN [address] [place] [phone] [email or web address] Intake Nurse Navigator Nursing 08/14/24 09/03/24 Larisa Chan RN [facility] [place] [address] [email or web address] Treatment Nurse Navigator Nursing 09/04/24
[2024-09-24] MEDS ORDERED: KETOROLAC 30 MG/ML INJ ONE (16:26)
[2024-09-24] MEDS ORDERED: MORPHINE 4 MG/ML SYR ONE (16:26)
[2024-09-24] MEDS ORDERED: ONDANSETRON 4 MG/2 ML VIAL ONE (16:26)
[2024-09-24] MEDS ORDERED: NA CHLORIDE 0.9% 1,000 ML ONE (16:26)
--- NOTE | 2024-09-24 16:28 | RAD REPORT ---
EXAMINATION: Stone Protocol CLINICAL INDICATION: Abdominal pain TECHNIQUE: CT abdomen and pelvis was performed, without IV contrast, as per department protocol. Oral contrast not given. Axial, sagittal and coronal reconstructions were obtained. One or more of the following dose reduction techniques were used: Automated exposure control, adjustment of the mA and k V according to the patient size, and iterative reconstruction. Unless otherwise specified, incidental findings do not require dedicated imaging follow-up. COMPARISON: No prior exam. FINDINGS: The lack of intravenous and oral contrast limits the sensitivity of this exam for evaluation of solid visceral organs, vascular structures, and bowel July 2024 CT chest Multiple bilateral calcified lung nodules again demonstrated. 1.6 cm cavitary right lower lobe lesion unchanged. A tiny calculus is seen within each kidney.. No ureteral calculus. A bladder calculus not noted. No h ydronephrosis Liver, , pancreas and adrenals grossly normal Borderline splenomegaly No evidence of diverticulitis. Normal appendix Small right inguinal hernia IMPRESSION: Tiny bilateral nonobstructing renal calculi.
[2024-09-24 16:54] LABS: Absolute Basophils 0.1 K/uL (0-0.5); Absolute Eosinophils 0.1 K/uL (0-0.5); Absolute Monocytes 0.4 K/uL (0.1-1.3); Absolute Neutrophil 4.9 K/uL (1.8-8.0); Basophils % 1.2 % (0-1.3); Eosinophils % 1.4 % (0-4.4); Hematocrit 43.5 % (39.6-49.0); Hemoglobin 14.9 g/dL (13.6-17.9); MCH 31.2 pg (27.0-35.0); MCHC 34.3 g/dL (32.0-36.0); MCV 91.1 fL (80-100); MPV 8.1 fL (7.6-11.3); Monocytes % 5.8 % (3.3-12.3); Neutrophils % 65.6 % (41.7-73.7); Nucleated Red Blood Cells % 0.1 % (0-0); Platelets 188 thou/uL (152-406); RBC Red Blood Cell Count 4.77 M/uL (4.33-5.43); Red Cell Distribution Width 13.1 % (12.1-15.2)
[2024-09-24 17:09] LABS: Albumin 3.8 g/dL (3.4-5.0); Anion Gap 8.1 mEq/L (5.0-15.0); Bilirubin Total 0.6 mg/dL (0.2-1.0); Globulin 3.9 g/dL (2.3-3.5); Potassium 4.1 mEq/L (3.5-5.1); Protein, Total 7.7 g/dL (6.4-8.2)
--- NOTE | 2024-09-24 17:11 | ER ---
Nurse's Notes [facility] Name: Michael Celis Age: 59 yrs Sex: Male : 1965 Arrival Date: 09/24/2024 Time: 15:09 Bed 8 Private MD: Diagnosis: Lower abdominal pain, unspecified Presentation: 09/24 15:26 Chief complaint: Patient states: back pain after colonoscopy yesterday , pain to right iw mid back , also has urinary frequency. Coronavirus screen: At this time, the client does not indicate any symptoms associated with coronavirus-19. Ebola Screen: No symptoms or risks identified at this time. Initial Sepsis Screen: Does the patient meet any 2 criteria? No. Patient's initial sepsis screen is negative. Does the patient have a suspected source of infection? No. Patient's initial sepsis screen is negative. Risk Assessment: Do you want to hurt yourself or someone else? Patient reports no desire to harm self or others. Onset of symptoms was September 23, 2024. 15:26 Method Of Arrival: Ambulatory iw 15:26 Acuity: ELGIN 3 iw Historical: - Allergies: 15:27 No Known Allergies; iw - PMHx: 15:27 colon cancer; thyroid cancer; iw - PSHx: 15:28 shoulder; iw - Immunization history:: Adult Immunizations up to date. - Infectious Disease History:: Denies. - Social history:: Smoking status: Patient/guardian denies using tobacco, but has a distant history of tobacco abuse. Screenin:40 [facility] ED Fall Risk Assessment (Adult) History of falling in the last 3 months, ld1 including since admission No falls in past 3 months (0 pts) Confusion or Disorientation No (0 pts) Intoxicated or Sedated No (0 pts) Impaired Gait No (0 pts) Mobility Assist Device Used No (0 pt) Altered Elimination No (0 pt) Score/Fall Risk Level 0 - 2 = Low Risk Oriented to surroundings, Hourly rounding (assess needs \T\ fall precautionary measures) done. Abuse screen: Denies threats or abuse. Denies injuries from another. Nutritional screening: No deficits noted. Tuberculosis screening: No symptoms or risk factors identified. Assessment: 16:40 General: Appears in no apparent distress. uncomfortable, Behavior is cooperative, ld1 anxious. Pain: Complains of pain in low back area Pain does not radiate. Pain currently is 10 out of 10 on a pain scale. Quality of pain is described as throbbing, Pain began suddenly, Is continuous. Neuro: Level of Consciousness is awake, alert, obeys commands, Oriented to person, place, time, situation. Cardiovascular: Capillary refill < 3 seconds Patient's skin is warm and dry. Respiratory: Airway is patent Respiratory effort is even, unlabored. GI: Abdomen is flat, non-distended. : Reports pain in bilateral flank(s). EENT: No signs and/or symptoms were reported regarding the EENT system. Derm: No signs and/or symptoms reported regarding the dermatologic system. Musculoskeletal: No signs and/or symptoms reported regarding the musculoskeletal system. Vital Signs: 15:26 BP 134 / 92; Pulse 78; Resp 16; Temp 97.2; Pulse Ox 99% on R/A; Weight 91.17 kg; Height iw 6 ft. 3 in. ; Pain 9/10; 16:40 BP 136 / 82; Pulse 66; Resp 18; Pulse Ox 96% on R/A; ld1 15:26 Body Mass Index 25.12 (91.17 kg, 190.5 cm) iw 15:26 Pain Scale: Adult iw ED Course: 15:11 Patient arrived in ED. im 15:13 Ashu Tabares FNP-C is PHCP. dr5 15:27 Triage completed. iw 15:28 Arm band placed on. iw 16:01 CT Stone Protocol In Process Unspecified. EDMS 16:23 Harmony Gil, EULALIA is Primary Nurse. ld1 16:38 Inserted saline lock: 20 gauge in right antecubital area, using aseptic technique. ld1 Blood collected. Flushed with 10 mL NS. 16:40 Patient has correct armband on for positive identification. Fall risk band placed. ld1 Placed in gown. Bed in low position. Side rails up X2. security monitor on. Pulse ox on. NIBP on. Door closed. Noise minimized. Warm blanket given. 16:40 No provider procedures requiring assistance completed. ld1 16:52 PHCP role handed off by Ashu Tabares FNP-C kb 16:52 Indu Salas FNP-C is PHCP. kb 16:52 Gil, Nasim, DO is Attending Physician. kb 17:10 [facility] kb 17:55 IV discontinued, intact, bleeding controlled, No redness/swelling at site. ld1 Administered Medications: 16:38 Drug: TORadol - Ketorolac IVP 15 mg IVP once Route: IVP; Site: right antecubital; ld1 16:38 Drug: Ondansetron IVP 4 mg IVP once; over 2 minutes Route: IVP; Site: right antecubital;ld1 16:38 Drug: morphine IVP or IV 4 mg IVP once over 4 mins Route: IVP; Infused Over: 4 mins; ld1 Site: right antecubital; 16:38 Drug: NS 0.9% IV 1000 ml IV at 1 bolus Per protocol; to be given as a bolus over 60 ld1 minutes Route: IV; Rate: 1 bolus; Site: right antecubital; Medication: 16:40 VIS not applicable for this client. ld1 Outcome: 17:11 Discharge ordered by MD. dr5 17:55 Discharged to home ambulatory, ld1 17:55 Condition: stable 17:55 Discharge instructions given to patient, Instructed on discharge instructions, follow up and referral plans. medication usage, Demonstrated understanding of instructions, follow-up care, medications, Prescriptions given X 3, 17:56 Patient left the ED. ld1 Signatures: Dispatcher [employer] EDMS Indu Salas FNP-C FNP-Jessica Sanchez, EULALIA ESTEBAN iw Harmony Gil RN RN ld1 Zuleika Toscano Dustin, FNP-C FNP-Cdr5 Corrections: (The following items were deleted from the chart) 15:27 15:26 BP 134 / 92; Pulse 78bpm; Resp 16bpm; Pulse Ox 99% RA; Temp 97.2F; iw iw
--- NOTE | 2024-09-24 17:11 | EDPHYS ---
Physician Documentation [facility] Name: Michael Celis Age: 59 yrs Sex: Male : 1965 Arrival Date: 09/24/2024 Time: 15:09 Bed 8 Private MD: ED Physician Nasim Gil HPI: 09/24 15:35 This 59 yrs old Male presents to ER via Ambulatory with complaints of Low dr5 Back Pain, Urinary Problem. 15:35 The patient presents with pain that is acute, with no known mechanism of injury. The dr5 symptoms are located in the low back, right low back. Patient is a 59-year-old male with history of colon cancer and thyroid cancer being treated at [facility] coming in with right flank pain and hesitancy with urination that started last night. Patient reports that yesterday he had a colonoscopy at [facility]. Patient reports he is having normal bowel movements and denies nausea or vomiting. Patient reports the pain waxes and wanes throughout the day.. Historical: - Allergies: 15:27 No Known Allergies; iw - PMHx: 15:27 colon cancer; thyroid cancer; iw - PSHx: 15:28 shoulder; iw - Immunization history:: Adult Immunizations up to date. - Infectious Disease History:: Denies. - Social history:: Smoking status: Patient/guardian denies using tobacco, but has a distant history of tobacco abuse. ROS: 15:35 Constitutional: as per hpi dr5 Exam: 15:35 Constitutional: This is a well developed, well nourished patient who is awake, alert, dr5 and in no acute distress. Head/Face: Normocephalic, atraumatic. ENT: Nares patent. No nasal discharge, no septal abnormalities noted. Tympanic membranes are normal and external auditory canals are clear. Oropharynx with no redness, swelling, or masses, exudates, or evidence of obstruction, uvula midline. Mucous membranes moist. Neck: Trachea midline, no thyromegaly or masses palpated, and no cervical lymphadenopathy. Supple, full range of motion without nuchal rigidity, or vertebral point tenderness. No Meningismus. Chest/axilla: Normal chest wall appearance and motion. Nontender with no deformity. No lesions are appreciated. Respiratory: Lungs have equal breath sounds bilaterally, clear to auscultation. No rales, rhonchi or wheezes noted. No increased work of breathing, no retractions or nasal flaring. Back: No spinal tenderness. No costovertebral tenderness. Full range of motion. Skin: Warm, dry with normal turgor. Normal color with no rashes, no lesions, and no evidence of cellulitis. Neuro: Awake and alert, GCS 15, oriented to person, place, time, and situation. Cranial nerves II-XII grossly intact. Motor strength 5/5 in all extremities. Sensory grossly intact. Cerebellar exam normal. Normal gait. Vital Signs: 15:26 BP 134 / 92; Pulse 78; Resp 16; Temp 97.2; Pulse Ox 99% on R/A; Weight 91.17 kg; Height iw 6 ft. 3 in. ; Pain 9/10; 16:40 BP 136 / 82; Pulse 66; Resp 18; Pulse Ox 96% on R/A; ld1 15:26 Body Mass Index 25.12 (91.17 kg, 190.5 cm) iw 15:26 Pain Scale: Adult iw MDM: 15:13 Medical Screening Exam initiated dr5 17:03 ED course: Patient is feeling much better. Pending lab results.. dr5 17:18 Differential diagnosis: arthritis, strain, Nephrolithiasis. Data reviewed: vital signs, dr5 nurses notes. I considered the following discharge prescriptions or medication management in the emergency department Medications were administered in the Emergency Department. See MAR. Care significantly affected by the following chronic conditions: Cancer. Care significantly affected by the following Social Determinants of Health: Poor access to healthcare and/or lack of insurance, Poor access to transportation, Problems related to employment. Counseling: I had a detailed discussion with the patient and/or guardian regarding the historical points, exam findings, and any diagnostic results supporting the discharge/admit diagnosis, the presence of at least one elevated blood pressure reading (>120/80) during this emergency department visit, lab results, the need for outpatient follow up, for definitive care, a family practitioner, to return to the emergency department if symptoms worsen or persist or if there are any questions or concerns that arise at home. ED course: Patient's pain is relieved and feeling much better. For now CT scan and lab results as well as discussed everything with patient and his . Printed out labs and placed in discharge for work as well as work note. Patient will follow-up this week for further management. Strict ER precautions given all questions answered. 09/24 15:35 Order name: CBC with Diff; Complete Time: 17:04 [facility] 09/24 15:35 Order name: CMP; Complete Time: 17:10 [facility] 09/24 15:35 Order name: Lipase; Complete Time: 17:10 [facility] 09/24 15:35 Order name: CT Stone Protocol; Complete Time: 16:33 [facility] 09/24 15:35 Order name: IV Saline Lock; Complete Time: 16:38 [facility] 09/24 15:35 Order name: Labs collected and sent; Complete Time: 16:38 dr5 Administered Medications: 16:38 Drug: TORadol - Ketorolac IVP 15 mg IVP once Route: IVP; Site: right antecubital; ld1 16:38 Drug: Ondansetron IVP 4 mg IVP once; over 2 minutes Route: IVP; Site: right antecubital;ld1 16:38 Drug: morphine IVP or IV 4 mg IVP once over 4 mins Route: IVP; Infused Over: 4 mins; ld1 Site: right antecubital; 16:38 Drug: NS 0.9% IV 1000 ml IV at 1 bolus Per protocol; to be given as a bolus over 60 ld1 minutes Route: IV; Rate: 1 bolus; Site: right antecubital; Disposition: 17:25 I was immediately available on-site in the Emergency Department for consultation in the ms3 care of the patient. Disposition Summary: 09/24/24 17:11 Discharge Ordered Notes: Location: Home dr5 Condition: Stable dr5 Diagnosis - Lower abdominal pain, unspecified dr5 Followup: dr5 - With: Emergency Department - When: As needed - Reason: Worsening of condition Followup: dr5 - With: Private Physician - When: 1 - 2 days - Reason: Recheck today's complaints, Continuance of care, Re-evaluation by your physician Discharge Instructions: - Discharge Summary Sheet dr5 - Abdominal Pain, Adult dr5 - Kidney Stones dr5 Forms: - Work release form dr5 - Medication Reconciliation Form dr5 - Patient Portal Instructions dr5 - Leadership Thank You Letter dr5 Prescriptions: - Zofran 4 mg Oral Tablet - take 1 tablet ORAL route every 12 hours As needed; 20 tablet; Refills: 0, dr5 Product Selection Permitted - Cyclobenzaprine 10 mg Oral Tablet - take 1 tablet ORAL route every 8 hours As needed; 30 tablet; Refills: 0, dr5 Product Selection Permitted - Hydrocodone-Acetaminophen 10-325 mg Oral Tablet - take 1 tablet ORAL route every 6 hours As needed; 12 tablet; Refills: 0, dr5 Product Selection Permitted Signatures: Dispatcher [employer] Indu Barraza, HOLLEY CARTER-CkJessica Pryor RN RN iw Nasim Gil, DO ms3 Harmony Gil RN RN ld1 Ashu Tabares, HOLLEY DINEROP-Cdr5 Corrections: (The following items were deleted from the chart) 15:35 15:35 CBC+H.LAB.BRZ ordered. EDMS EDMS 15:35 15:35 COMPREHENSIVE METABOLIC PANEL+C.LAB.BRZ ordered. EDMS EDMS 15:35 15:35 LIPASE+C.LAB.BRZ ordered. EDMS EDMS 15:36 15:36 Stone Protocol+CT.RAD.BRZ ordered. EDMS EDMS 17:19 17:03 Transition of care: After a detail discussion of the patient's case, care is dr5 transferred to Indu DINEROPPlacido dr5
[2024-09-24 18:34] VITALS: TEMP 97.2
[2024-09-24 18:40] VITALS: BP 136/82; O2SAT 96
== END 2024-09-24 17:56 | disposition home or self-care (01) ==
LOC: ER 15:09
DX: R10.31 Right lower quadrant pain (principal); M54.50 Low back pain, unspecified; Z85.038 Personal history of other malignant neoplasm of large intestine; Z85.850 Personal history of malignant neoplasm of thyroid
CPT/HCPCS: 85025; 36415; 83690; 80053; 76377; 74176; J2405; J7030